=== PATIENT | female | born 1990 | race Caucasian/White ===

== ENCOUNTER 2018-08-25 04:17 | Emergency (ER) | payer BC, OTHER ==
--- OUTSIDE RECORDS SUMMARY | 2018-08-25 04:19 | XMS REPORT | Continuity of Care Document ---
:1990 Author Organization Interface Problems Problem Status Onset Classification Date Comments Source Date Reported EXPOSURE Active [address] Needle Stick 11/01/2017 [facility] CHECK UP Active [address] BDDC-NAUSEA W Active [facility] VOMITING; [address] [place] [address] REFLU FOLLOW UP Active [address] DIARRHEA AFTER Active [facility] SHE EATS [address] [place] [address] Center Acute Active Problem 11/01/2017 [facility] sinusitis 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, Medical [facility] Physical exam Active Problem 11/01/2017 [facility], Medical [facility] Venereal Active Problem 11/01/2017 [facility] disease [facility], [facility] Vaginitis Active Problem 11/01/2017 [facility], Medical Group Medications Medication Details Route Status Patient Ordering Order Source Instructions Provider Date predniSONE 10 10 mg=1 tab, Active MH mg oral tablet PO, Daily, X 10 018 Medical day, # 10 tab, Group 0 Refill(s), Pharmacy: [facility]/pharmacy #[id number] Fluconazole 150 mg=1 tab, Active 150 MG Oral PO, ONCE, once 018 Medical Tablet a week, # 2 Group [Diflucan] tab, 0 Refill(s), Pharmacy: [facility]/pharmacy #[id number] {6 See Active (Azithromycin Instructions, 018 Medical 250 MG Oral Take 2 tablets Group Tablet by mouth the [Zithromax]) } first day then Pack [Z-PAKS] 1 tablet by mouth days 2-5., X 5 day, # 6 tab, 0 Refill(s), Pharmacy: [facility]/pharmacy #[id number] acetaminophen- 1 tab, PO, Q4H, PO Active [place] [facility] hydrocodone PRN, for pain, 012 Medical 500 mg-5 mg Substitution Center oral tablet Allowed, Maintenance, TAB Allergies, Adverse Reactions, Alerts Substance Category Reaction Severity Reaction Status Date Comments Source type Reported Immunizations Immunization Date Given Site Status Last Updated Comments Source Results Order Name Results Value Reference Date Interpretation Comments Source Range Microbiology Culture: [address] Aspirate Vital Signs Vital Sign Value Date Comments Source Weight 86.364 10/29/2017 [facility] BMI Calculated 28.12 10/29/2017 [facility] Temperature Oral (F) 97.8 F 10/29/2017 [facility] Heart Rate 85 10/29/2017 [facility] Systolic (mm Hg) 136 10/29/2017 [facility] Diastolic (mm Hg) 93 10/29/2017 [facility] Respitory Rate 18 10/29/2017 [facility] Height 175.26 cm 10/29/2017 [facility] BMI Calculated 28.14 10/21/2017 [facility] Weight 86.42 10/21/2017 [facility] Height 175.26 cm 10/21/2017 [facility] Heart Rate 78 10/21/2017 [facility] Temperature Oral (F) 97.4 F 10/21/2017 [facility] Systolic (mm Hg) 94 10/21/2017 [facility] Diastolic (mm Hg) 67 10/21/2017 [facility] Diastolic (mm Hg) 67 12/07/2012 [facility] Systolic (mm Hg) 108 12/07/2012 [facility] Heart Rate 81 12/07/2012 [facility] Weight 50.994 12/07/2012 [facility] Height 175.26 cm 12/07/2012 [facility] Height 173.36 cm 04/01/2012 [facility] Weight 77.500 04/01/2012 [facility] Diastolic (mm Hg) 67 04/01/2012 [facility] Heart Rate 94 04/01/2012 [facility] Systolic (mm Hg) 116 04/01/2012 [facility] Encounters Location Location Encounter Encounter Reason Attending ADM DC Status Source Details Type Number For Provider Date Date Visit [facility] Outpatient [id number] DIARRHEA GUILLAUME 04/01 Active [facility] AFTER [facility] [place] [facility] E[facility] Outpatient [id number] FOLLOW GUILLAUME 12/07 Active [facility] [place] [facility] MARCO [id number] GUILLAUME 12/29 12/29 Active [facility] /[address] [facility] Center Outpatient [id number] SAFIA 10/21 Active [facility] [id number] Safia 10/21 10/22 [facility]2017 [facility] Emergency [id number] Tanya 10/29 10/[address] [facility] /2017 [facility] Procedures Procedure Code Date Perfomer [place] [id number] 10/21/2017 Medical venous blood by Group venipuncture
--- OUTSIDE RECORDS SUMMARY | 2018-08-25 04:20 | XMS REPORT | Summary of Care ---
:1990 Author Organization [facility] Primary Care [facility] Address [address] [place] [address], [address] [place] [address]- Encounter HQ Salma(KAYY) [id number] Date(s): 10/21/17 - 10/21/17 [facility] [address] [place] [address], [address] [place] [phone] Discharge Disposition: Home or Self Care Attending Physician: Safia Mercado MD Vital Signs Most recent to oldest [Reference Range]: 1 Height 175.26 cm (10/21/17 1:04 PM) Temperature Oral [96.4-99.1 DegF] 97.4 DegF (10/21/17 1:04 PM) Blood Pressure [90-140/60-90 mmHg] 94/67 mmHg (10/21/17 1:04 PM) Peripheral Pulse Rate [60-100 bpm] 78 bpm (10/21/17 1:04 PM) Weight 86.42 kg (10/21/17 1:04 PM) Body Mass Index 28.14 m2 (10/21/17 1:04 PM) Problem List Condition Effective Dates Status Health Status Informant Acute sinusitis(Confirmed) Active History of HPV infection(Confirmed) Active Physical exam(Confirmed) Active Venereal disease screening(Confirmed) Active Vaginitis(Confirmed) Active Allergies, Adverse Reactions, Alerts Substance Reaction Severity Status NKDA Active Medications Diflucan 150 mg oral tablet 150 mg=1 tab, PO, ONCE, once a week, # 2 tab, 0 Refill(s), Pharmacy: [facility]/ pharmacy #[id number] Start Date: 10/21/17 Status: OrderedpredniSONE 10 mg oral tablet 10 mg=1 tab, PO, Daily, X 10 day, # 10 tab, 0 Refill(s), Pharmacy: [facility]/pharmacy #[id number] Start Date: 10/21/17 Stop Date: 10/31/17 Status: OrderedZithromax Z-Ben 250 mg oral tablet See Instructions, Take 2 tablets by mouth the first day then 1 tablet by mouth days 2-5., X 5 day, #6 tab, 0 Refill(s), [id number] Start Date: 10/21/17 Stop Date: 10/26/17 Status: Ordered Results No data available for this section Immunizations No data available for this section Procedures Procedure Date Related Diagnosis Body Site Status Collection of venous blood by 10/21/17 Completed venipuncture Social History No data available for this section Assessment and Plan No data available for this section
--- OUTSIDE RECORDS SUMMARY | 2018-08-25 04:20 | XMS REPORT | CCD ---
:1990 Author Organization [facility] Care Team Providers Name Role Phone Ronald Anderson Referring Provider Allergies, Adverse Reactions, Alerts Substance Reaction Status NKDA Active Results Microbiology Reports PROCEDURE:Culture: Quantitative Duodenal Aspirate STATUS: Modified BODY SITE: COLLECTED DATE/TIME: 12/29/2012 12:34:00 SOURCE: Duodenal Aspirate FREE TEXT SOURCE: PRELIMINARY REPORTS Preliminary ReportCulture In Progress Preliminary ReportNo Anaerobes Isolated After 2 Days >100,000 Colonies/Ml Normal Respiratory Ene Isolated
--- OUTSIDE RECORDS SUMMARY | 2018-08-25 04:20 | XMS REPORT | Summary of Care ---
:[address] [facility] Address [address] [place] [address]- Encounter HQ Encntr_alias(FIN) [id number] Date(s): 10/29/17 - 10/29/[address] Professional Services provided by [facility] [place] [address]- Encounter Diagnosis Needle Stick Injury (Discharge Diagnosis) - 10/29/17 Discharge Disposition: Home or Self Care Attending Physician: Tanya Salazar MD Vital Signs Most recent to oldest [Reference Range]: 1 Height 175.26 cm (10/29/17 5:50 AM) Temperature Oral [96.4-99.1 DegF] 97.8 DegF (10/29/17 5:50 AM) Blood Pressure [90-140/60-90 mmHg] 136/93 mmHg (10/29/17 5:50 AM) Respiratory Rate [14-20 BRMIN] 18 BRMIN (10/29/17 5:50 AM) Peripheral Pulse Rate [60-100 bpm] 85 bpm (10/29/17 5:50 AM) Weight 86.364 kg (10/29/17 5:50 AM) Body Mass Index 28.12 m2 (10/29/17 5:50 AM) Problem List Condition Effective Dates Status Health Status Informant Acute sinusitis(Confirmed) Active History of HPV infection(Confirmed) Active Physical exam(Confirmed) Active Venereal disease screening(Confirmed) Active Vaginitis(Confirmed) Active Allergies, Adverse Reactions, Alerts Substance Reaction Severity Status NKDA Active Medications No data available for this section Results No data available for this section Immunizations No data available for this section Procedures No data available for this section Social History Social History Type Response Smoking Status Never smoker; Exposure to Tobacco Smoke None; Cigarette Smoking Last 365 Days No; Reg Smoking Cessation Counseling No entered on: 10/29/17 Assessment and Plan No data available for this section
--- OUTSIDE RECORDS SUMMARY | 2018-08-25 04:20 | XMS REPORT | CCD ---
:1990 Author Organization [facility] Care Team Providers Name Role Phone Ronald Anderson Referring Provider Allergies, Adverse Reactions, Alerts Substance Reaction Status NKDA Active Vital Signs Most recent to oldest [Reference Range]: 1 Height 175.26 cm (12/07/2012 13:57:00) Systolic Blood Pressure [90-140 mmHg] 108 mmHg (12/07/2012 13:57:00) Diastolic Blood Pressure [60-90 mmHg] 67 mmHg (12/07/2012 13:57:00) Peripheral Pulse Rate [60-100 bpm] 81 bpm (12/07/2012 13:57:00) Weight 50.994 kg (12/07/2012 13:57:00)
--- OUTSIDE RECORDS SUMMARY | 2018-08-25 04:20 | XMS REPORT | CCD ---
:1990 Author Organization [facility] Care Team Providers Name Role Phone Physician, Non Associated Referring Provider Unavailable Ronald Anderson Consulting Provider Allergies, Adverse Reactions, Alerts Substance Reaction Status NKDA Active Medications Medication Instructions Start Date End Date Status acetaminophen-hydrocodone 1 tab, PO, Q4H, PRN, for 04/01/2012 Ordered 500 mg-5 mg oral tablet pain, Substitution Allowed, Maintenance, TAB Vital Signs Most recent to oldest [Reference Range]: 1 Height 173.36 cm (04/01/2012 11:40:00) Systolic Blood Pressure [90-140 mmHg] 116 mmHg (04/01/2012 11:40:00) Diastolic Blood Pressure [60-90 mmHg] 67 mmHg (04/01/2012 11:40:00) Peripheral Pulse Rate [60-100 bpm] 94 bpm (04/01/2012 11:40:00) Weight 77.500 kg (04/01/2012 11:40:00)
[2018-08-25] MEDS ORDERED: LIDOCAINE 1% W/EPI 1:100,000 MDV 50 ML VIAL ONE (04:47)
[2018-08-25] MEDS ORDERED: TETANUS & DIPHTHERIA TOX,ADULT 0.5 ML VIAL ONE (05:00)
--- NOTE | 2018-08-25 05:26 | ER ---
Nurse's Notes [facility] Name: Janay Jj Age: 28 yrs Sex: Female : 1990 Arrival Date: 08/25/2018 Time: 04:18 Bed 14 Private MD: Diagnosis: Laceration without foreign body, left lower leg Presentation: 08/25 04:35 Presenting complaint: Patient states: she was taking out the garbage this morning and bb was swinging the trash bag which had a broken wine bottle in it and cut her left lower leg. Transition of care: patient was not received from another setting of care. Complicating Factors: There are no complicating factors for this patient. Onset of symptoms was August 25, 2018. Risk Assessment: Do you want to hurt yourself or someone else? Patient reports no desire to harm self or others. Initial Sepsis Screen: Does the patient meet any 2 criteria? No. Patient's initial sepsis screen is negative. Does the patient have a suspected source of infection? No. Patient's initial sepsis screen is negative. Care prior to arrival: None. 04:35 Method Of Arrival: Ambulatory bb 04:35 Acuity: ROBB 4 bb Triage Assessment: 04:37 Injury Description: Laceration sustained to medial aspect of left calf is clean, 7.6 to bb 20 cm long, not bleeding. 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 - Social history:: Smoking status: Patient/guardian denies using tobacco, Patient uses alcohol, occasionally. Patient/guardian denies using street drugs. - Ebola Screening: : No symptoms or risks identified at this time. - Family history:: not pertinent. Screenin:45 Abuse screen: Denies threats or abuse. Nutritional screening: No deficits noted. bb Tuberculosis screening: No symptoms or risk factors identified. Fall Risk None identified. Assessment: 04:45 General: Appears in no apparent distress. uncomfortable, Behavior is calm, cooperative, bb Reports laceration to left lower extremity. Pain: Denies pain. Neuro: Level of Consciousness is awake, alert, obeys commands, Oriented to person, place, time, situation. Cardiovascular: No deficits noted. Respiratory: Respiratory effort is even, unlabored, Respiratory pattern is regular. GI: No deficits noted. No signs and/or symptoms were reported involving the gastrointestinal system. Derm: Skin is pink, warm \T\ dry. Wound noted medial aspect of left calf. Musculoskeletal: Circulation, motion, and sensation intact. Injury Description: Laceration sustained to medial aspect of left calf is 7.6 to 20 cm long, not bleeding, 2nd laceration is 4 cms. 05:26 Reassessment: Patient is alert, oriented x 3, equal unlabored respirations, skin bb warm/dry/pink. suture line intact dressing in place clean, dry and intact. Pt verbalized understanding of and agrees to plan of care discharge instructions given pt ambulated with steady gait to exit. Vital Signs: 04:37 BP 127 / 85; Pulse 106; Resp 16 S; Temp 98.2(O); Pulse Ox 96% on R/A; Weight 78.02 kg bb (R); Height 5 ft. 8 in. (172.72 cm) (R); Pain 0/10; 04:37 Body Mass Index 26.15 (78.02 kg, 172.72 cm) ED Course: 04:18 Patient arrived in ED. am2 04:26 Austen Robbins MD is Attending Physician. [facility] 04:36 Triage completed. bb 04:37 Arm band placed on Patient placed in an exam room, on a stretcher, on pulse oximetry. bb 04:42 Caitlyn Wolfe, RN is Primary Nurse. ea 04:45 Patient has correct armband on for positive identification. Bed in low position. Call bb light in reach. Side rails up X 1. Pulse ox on. NIBP on. 04:45 Assist provider with laceration repair on medial aspect of left calf that was between bb 7.6 to 12.5 cm using sutures. Set up tray. Performed by Austen Robbins MD. 04:45 Assist provider with laceration repair on medial aspect of left calf that was between bb 2.6 to 7.5 cm using sutures. 05:20 Wound care: to laceration located on medial aspect of left calf was dressed with scarlett Neosporin, Adaptic gauze applied and covered with an solange wrap. 05:30 Patient did not have IV access during this emergency room visit. 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 Lot #: [id number]. } Route: IM; Site: right deltoid; 05:26 Follow up: Response: No adverse reaction bb 05:25 Drug: KeFLEX 500 mg Route: PO; bb 05:34 Follow up: Response: No adverse reaction bb 05:25 Drug: Motrin 800 mg Route: PO; bb 05:34 Follow up: Response: No adverse reaction bb 05:25 Drug: Neosporin Ointment 1 application Route: Topical; Site: wound; bb Outcome: 05:25 Discharge ordered by . nneka 05:30 Condition: stable 05:33 Discharged to home ambulatory. scarlett 05:33 Discharge instructions given to patient, Instructed on discharge instructions, follow up and referral plans. medication usage, wound care, Demonstrated understanding of instructions, follow-up care, medications, wound care, Prescriptions given X 2. 05:46 Patient left the ED. ea Signatures: Austen Robbins MD MD cha Ballard, Brenda, RN RN Bell Meza Elena RN RN crystal Corrections: (The following items were deleted from the chart) 05:20 04:45 Injury Description: Laceration sustained to medial aspect of left calf is 7.6 to bb 20 cm long, not bleeding, scarlett 05:20 04:45 Assist provider with laceration repair on medial aspect of left calf that was bb between 7.6 to 12.5 cm using sutures. Set up tray. Performed by Austen pantoja
--- NOTE | 2018-08-25 05:26 | EDPHYS ---
Physician Documentation [facility] Name: Janay Jj Age: 28 yrs Sex: Female : 1990 Arrival Date: 08/25/2018 Time: 04:18 Bed 14 Private MD: ED Physician Austen Robbins HPI: 08/25 05:20 This 28 yrs old Female presents to ER via Ambulatory with complaints of nneka Laceration To Leg. 05:20 The patient has a laceration related to: doing yard work, occurred at home. The nneka laceration(s) is(are) located on the medial aspect of left calf. Onset: The symptoms/episode began/occurred just prior to arrival. Associated signs and symptoms: The patient has no apparent associated signs or symptoms. The patient has not experienced similar symptoms in the past. 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 - Social history:: Smoking status: Patient/guardian denies using tobacco, Patient uses alcohol, occasionally. Patient/guardian denies using street drugs. - Ebola Screening: : No symptoms or risks identified at this time. - Family history:: not pertinent. ROS: 05:20 Constitutional: Negative for fever, chills, and weight loss, Eyes: Negative for injury, nneka pain, redness, and discharge, ENT: Negative for injury, pain, and discharge, Neck: Negative for injury, pain, and swelling, Cardiovascular: Negative for chest pain, palpitations, and edema, Respiratory: Negative for shortness of breath, cough, wheezing, and pleuritic chest pain, Abdomen/GI: Negative for abdominal pain, nausea, vomiting, diarrhea, and constipation, Back: Negative for injury and pain, : Negative for injury, bleeding, discharge, and swelling, Skin: Negative for injury, rash, and discoloration, Neuro: Negative for headache, weakness, numbness, tingling, and seizure, Psych: Negative for depression, anxiety, suicide ideation, homicidal ideation, and hallucinations, Allergy/Immunology: Negative for hives, rash, and allergies, Endocrine: Negative for neck swelling, polydipsia, polyuria, polyphagia, and marked weight changes, Hematologic/Lymphatic: Negative for swollen nodes, abnormal bleeding, and unusual bruising. 05:20 MS/extremity: Positive for laceration, pain, of the medial aspect of left calf. Exam: 05:20 Constitutional: This is a well developed, well nourished patient who is awake, alert, nneka and in no acute distress. Head/Face: Normocephalic, atraumatic. Eyes: Pupils equal round and reactive to light, extra-ocular motions intact. Lids and lashes normal. Conjunctiva and sclera are non-icteric and not injected. Cornea within normal limits. Periorbital areas with no swelling, redness, or edema. ENT: Nares patent. No nasal discharge, no septal abnormalities noted. Tympanic membranes are normal and external auditory canals are clear. Oropharynx with no redness, swelling, or masses, exudates, or evidence of obstruction, uvula midline. Mucous membranes moist. Neck: Trachea midline, no thyromegaly or masses palpated, and no cervical lymphadenopathy. Supple, full range of motion without nuchal rigidity, or vertebral point tenderness. No Meningismus. Chest/axilla: Normal chest wall appearance and motion. Nontender with no deformity. No lesions are appreciated. Cardiovascular: Regular rate and rhythm with a normal S1 and S2. No gallops, murmurs, or rubs. Normal PMI, no JVD. No pulse deficits. Respiratory: Lungs have equal breath sounds bilaterally, clear to auscultation and percussion. No rales, rhonchi or wheezes noted. No increased work of breathing, no retractions or nasal flaring. Abdomen/GI: Soft, non-tender, with normal bowel sounds. No distension or tympany. No guarding or rebound. No evidence of tenderness throughout. Back: No spinal tenderness. No costovertebral tenderness. Full range of motion. Neuro: Awake and alert, GCS 15, oriented to person, place, time, and situation. Cranial nerves II-XII grossly intact. Motor strength 5/5 in all extremities. Sensory grossly intact. Cerebellar exam normal. Normal gait. Psych: Awake, alert, with orientation to person, place and time. Behavior, mood, and affect are within normal limits. 05:20 Musculoskeletal/extremity: Extremities: pain, ROM: full active range of motion, full passive range of motion, Circulation is intact in all extremities. Sensation intact. Compartment Syndrome exam of affected extremity: is normal. Vital Signs: 04:37 BP 127 / 85; Pulse 106; Resp 16 S; Temp 98.2(O); Pulse Ox 96% on R/A; Weight 78.02 kg bb (R); Height 5 ft. 8 in. (172.72 cm) (R); Pain 0/10; 04:37 Body Mass Index 26.15 (78.02 kg, 172.72 cm) Laceration: 05:23 Wound Repair of 7cm ( 2.8in ) subcutaneous laceration to left leg and medial aspect of nneka left calf. Linear shaped.. Skin/tissue flap noted.. Distal neuro/vascular/tendon intact. Anesthesia: Local anesthetic administered with 10 mls of 1% lidocaine w/ Epi. Wound prep: Simple cleansing by me. Skin closed with 10 4-0 Prolene using vertical mattress sutures and sterile technique. Dressed with Neosporin, pressure dressing, non-adherent dressing. Patient tolerated well. MDM: 04:26 Patient medically screened. [facility] 05:20 Data reviewed: vital signs, nurses notes. [facility] 08/25 04:39 Order name: Suture Tray Setup; Complete Time: 04:44 08/25 04:39 Order name: Gloves, Sterile; Complete Time: 04:44 08/25 05:20 Order name: Wound dressing; Complete Time: 05:25 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 Lot #: [id number]. } Route: IM; Site: right deltoid; 05:26 Follow up: Response: No adverse reaction bb 05:25 Drug: KeFLEX 500 mg Route: PO; bb 05:34 Follow up: Response: No adverse reaction bb 05:25 Drug: Motrin 800 mg Route: PO; bb 05:34 Follow up: Response: No adverse reaction bb 05:25 Drug: Neosporin Ointment 1 application Route: Topical; Site: wound; bb Disposition: 08/25/18 05:25 Discharged to Home. Impression: Laceration without foreign body, left lower leg. - Condition is Stable. - Discharge Instructions: Laceration Care, Adult, Laceration Care, Adult, [id number]. - Prescriptions for Keflex 500 mg Oral Capsule - take 1 capsule by ORAL route every 6 hours for 10 days; 40 capsule. Tylenol- Codeine #3 300-30 mg Oral Tablet - take 2 tablet by ORAL route every 6 hours As needed; 30 tablet. - Medication Reconciliation Form, Thank You Letter, Antibiotic Education, Prescription Opioid Use form. - Follow up: Private Physician; When: 7 - 10 days; Reason: Recheck today's complaints, Continuance of care, Re-evaluation by your physician. - Problem is new. - Symptoms have improved. Signatures: Austen Robbins MD MD cha Ballard, Brenda RN RN Caitlyn Ruth RN RN ea Corrections: (The following items were deleted from the chart) 05:46 05:25 08/25/2018 05:25 Discharged to Home. Impression: Laceration without foreign body, ea left lower leg. Condition is Stable. Forms are Medication Reconciliation Form, Thank You Letter, Antibiotic Education, Prescription Opioid Use. Follow up: Private Physician; When: 7 - 10 days; Reason: Recheck today's complaints, Continuance of care, Re-evaluation by your physician. Problem is new. Symptoms have improved. nneka
[2018-08-25] MEDS ORDERED: IBUPROFEN 400 MG TAB ONE (05:35)
[2018-08-25] MEDS ORDERED: CEPHALEXIN 250 MG CAP ONE (05:35)
[2018-08-25 05:57] VITALS: BP 127/85; TEMP 98.2; O2SAT 96
== END 2018-08-25 05:46 | disposition home or self-care (01) ==
LOC: ER 04:17
PROC: 0JQP0ZZ Repair Left Lower Leg Subcutaneous Tissue and Fascia, Open Approach (ICD-10-PCS; principal; 2018-08-25)
DX: S81.812A Laceration without foreign body, left lower leg, initial encounter (principal); Y93.H9 Activity, other involving exterior property and land maintenance, building and construction; Y92.009 Unspecified place in unspecified non-institutional (private) residence as the place of occurrence of the external cause
CPT/HCPCS: 90471; 90714; 99284